=== PATIENT | female | born 1960 | race Caucasian/White ===

== ENCOUNTER 2021-07-06 07:45 | Outpatient (CLI) | payer BC | END 2021-07-06 23:59 | disposition home or self-care (01) | LOC: VAS 07:45 | PROVIDERS: ATTEND Family Medicine | DX: M79.604 Pain in right leg (principal); R60.9 Edema, unspecified | CPT/HCPCS: 93971 ==

== ENCOUNTER 2021-07-10 08:10 | Outpatient (CLI) | payer BC | END 2021-07-10 23:00 | disposition home or self-care (01) | LOC: RAD 08:10 | PROVIDERS: ATTEND Family Medicine | DX: K29.70 Gastritis, unspecified, without bleeding (principal); Z90.49 Acquired absence of other specified parts of digestive tract | CPT/HCPCS: 76700 ==